=== PATIENT | female | born 1975 | race Caucasian/White ===

== ENCOUNTER → 2020-11-24 | Outpatient (CLI) | payer OTHER ==
[2020-11-24 14:09] LABS: HEMOGLOBIN 13.4 gm/dl (12.3-15.3); RED BLOOD COUNT 4.54 M/UL (4.00-5.10); WHITE BLOOD COUNT 7.9 K/UL (4.5-11.0)
[2020-11-24 14:38] LABS: BUN/CREATININE RATIO 7 (0-10)
[2020-11-25 09:14] LABS: HCV ANTIBODY >11.0 (0.0-0.9)
[2020-11-25 16:12] LABS: TREPONEMA PALLIDUM ANTIBODIES Non Reactive (Non Reactive)
[2020-11-25 17:12] LABS: FINAL INTERPRETATION Negative (.); HIV 1 AB Negative (Negative); HIV 2 AB Negative (Negative)
[2020-11-28 18:11] LABS: ALT (SGPT) P5P 20 IU/L (0-40); APOLIPOPROTEIN A-1 144 mg/dL (116-209); BILIRUBIN, TOTAL 0.2 mg/dL (0.0-1.2); FIBROSIS SCORE 0.12 (0.00-0.21); GGT 36 IU/L (0-60); HAPTOGLOBIN 130 mg/dL (42-296); NECROINFLAMMAT ACTIVITY GRADE A0-No activity (.); NECROINFLAMMAT ACTIVITY SCORE 0.06 (0.00-0.17)
[2020-12-01 13:13] LABS: HEPATITIS C GENOTYPE 1a (.)
== END ==
LOC: LAB 13:21
PROVIDERS: Family Medicine
DX: B18.2 Chronic viral hepatitis C (principal); Z79.899 Other long term (current) drug therapy
CPT/HCPCS: 36415; 80053; 81596; 82172; 82247; 82607; 82977; 83010; 84443; 84460; 85025; 86701; 86702; 86704; 86705; 86706; 86780; 86803; 87340; 87902